=== PATIENT | male | born 1995 | race Caucasian/White ===

== ENCOUNTER 2020-10-13 01:01 | Emergency (ER) | payer OTHER ==
[~2020-10-13] VITALS: Ht 180.3 cm; Wt 84.6 kg
[2020-10-13] MEDS ORDERED: PARO10TA56 PO (01:31)
--- NOTE | 2020-10-13 01:36 | NUR ---
PATIENT RESTING IN BED, SOB NOTED DURING CONVERSATION. DR. PATIÑO AND THIS RN TO BEDSIDE FOR INITIAL ASSESSMENT. PATIENT TACHYCARDIC ON MONITOR. VISITOR AT BEDSIDE. PATIENT REPORTS HAVING THIS "GASPING FOR AIR" AND "SHORTNESS OF BREATH" FOR APPROX 1 YEAR. HE HAS BEEN SEEN FOR IT AND IS SEEING A FABRICATION INSPECTOR FOR HIS ELEVATED HR WHICH IS ALSO CHRONIC FOR HIM PER PATIENT REPORT. CALL MOORE IN REACH. BED IN LOWEST POSITION. SAFETY MAINTAINED. WILL CONTINUE TO MONITOR
[2020-10-13 02:06] LABS: BASOPHILS % (AUTO) 1 % (0-1); EOSINOPHILS % (AUTO) 5 % (1-7); LYMPHOCYTES % (AUTO) 22 % (22-44); MEAN CORPUSCULAR HEMOGLOBIN 29.2 pg (27.5-34.5); MEAN CORPUSCULAR HGB CONC 34.2 g/dL (33.2-36.2); MEAN PLATELET VOLUME 7.7 fL (7.4-10.4); MONOCYTES % (AUTO) 10 % (2-9); NEUTROPHILS % (AUTO) 63 % (42-75); PLATELET COUNT 284 x10^3/uL (130-400); RED BLOOD COUNT 5.71 x10^6/uL (4.38-5.82); RED CELL DISTRIBUTION WIDTH 13.9 % (9.4-14.8)
[2020-10-13 02:09] LABS: MD NO
[2020-10-13 02:18] LABS: ALBUMIN 4.2 g/dL (3.4-5.0); ANION GAP 6 mmol/L (5-15); CALCIUM 8.8 mg/dL (8.5-10.1); CHLORIDE 108 mmol/L (98-107); CREATININE 1.03 mg/dL (0.7-1.3)
[2020-10-13 02:22] LABS: TROPONIN I < 0.015 ng/mL (0.000-0.045)
--- NOTE | 2020-10-13 02:35 | NUR ---
IV PLACED FOR CTA. PATIENT NOTIFIED OF REASONING. DR. PATIÑO AT BEDSIDE TO REVIEW LAB RESULTS AND XR WITH PATIENT. PATIETN AGREEABLE WITH PLAN OF CARE. CALL MOORE IN REACH. WILL WAIT FOR CTA
--- NOTE | 2020-10-13 03:03 | NUR ---
PATIENT TO CT
[2020-10-13] MEDS ORDERED: OMNIPAQUE 350 MG/ML, 75ML BOTTLE ONE (03:10)
--- NOTE | 2020-10-13 03:53 | NUR ---
PATIENT RESTING IN BED IN NAD AND VS REMAIN STABLE. PATIENT REPORTS CHEST PAIN HAS NOT CHANGED AND IS STILL PRESENT BUT DECLINES ANY MEDICATION INTERVENTION AT THIS TIME. WILL CONTINUE TO MONITOR.
--- NOTE | 2020-10-13 04:43 | NUR ---
DISCHARGE INSTRUCTIONS REVIEWED WITH PATIENT. NO FURTHER QUESTIONS. IV REMOVED PER DC PROTOCOL. ALL PERSONAL BELONGINGS WITH PATIENT ON DEPARTURE. STEADY GAIT TO LOBBY. VS REMAIN STABLE ON RA. HR AND BP STABILIZED. 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 IN NAD ON ARRIVAL. RESPIRATIONS NORMAL AND EVEN.
[2020-10-13 04:44] VITALS: BP 129/80
== END 2020-10-13 04:46 | disposition home or self-care (01) ==
LOC: ED 04:00
DX: R07.89 Other chest pain (principal); R94.31 Abnormal electrocardiogram [ECG] [EKG]
CPT/HCPCS: 36415; 71045; 71275; 80048; 82040; 84484; 85025; 85379; 93005; 99285; Q9967